=== PATIENT | male | born 1975 | race Caucasian/White ===

== ENCOUNTER → 2016-07-05 | Day surgery (SDC) | payer BC ==
[~2016-07-05] VITALS: Ht 193 cm; Wt 132.5 kg
[~2016-07-05] MED LIST: ADVIL200 MG PO; LEVAQUIN500 MG PO; NORCO 5-325 TA1 EACH PO; TYLENOL EXTRA500 MG PO
--- NOTE | ~2016-07-05 | OR ---
PATIENT'S NAME: LUZ MARIA STEELE [facility] AGE: 40 Y [address] ROOM: [place] [address] [place] [facility] [place] [facility] [place] DATE: 07/05/2016 OR/Procedure Report DISCHARGE DATE: FAMILY PHYSICIAN: Enrique Delvalle MD ATTENDING PHYSICIAN: Eric Do SURGEON: Eric Do MD PROSTHETIC AIDE: DATE OF PROCEDURE: 07/05/2016 PREOPERATIVE DIAGNOSIS: Perineal abscess (Cowper gland per Radiology). POSTOPERATIVE DIAGNOSIS: Perineal abscess (Cowper gland per Radiology). PROCEDURE: Incision and drainage with intraoperative cultures. ANESTHESIA: General. INDICATION: This is an otherwise healthy 40-year-old gentleman, who had developed severe scrotal and perineal pain. He had some bleeding from a pustular lesion on the surface. Basically, that was the infection trying to drain spontaneously. He is extremely miserable. Dr. Delvalle had seen him. He sent him over urgently. We found an elevated white count and an elevated CRP. To further evaluate the extent, we had an ultrasound obtained. I reviewed that with Dr. Brown. 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 It does not appear to track anywhere. There are no other air-fluid levels. He does not have a lot of cellulitis. I did not believe this is a necrotizing fasciitis. He presents at this time for incision and drainage. DESCRIPTION OF PROCEDURE: Having obtained his informed consent, the patient was taken to the operating room. Prepped and draped in a lithotomy position. The skin was incised. We have a copious foul-smelling drainage. We obtained cultures. He was then given IV Levaquin. I probed it and opened it up. There were no loculations. It appears to be completely drained. Importantly, he has had no voiding symptoms. There does not appear to be any urethral connection. He denies any bowel complaints. I did a digital rectal exam after we were done, and that was unremarkable. It does not come anywhere near the cyst. There was no other fluctuance. Antibiotic irrigation was undertaken. We washed the cyst cavity out well. We then tacked it with iodoform gauze. The patient tolerated the procedure well. Blood loss was minimal. The above- PATIENT'S NAME: LUZ MARIA STEELE [facility] AGE: 40 Y [address] ROOM: [place] [address] LOCATION: [facility] [place] [place] DATE: 07/05/2016 OR/Procedure Report DISCHARGE DATE: FAMILY PHYSICIAN: Enrique Delvalle MD ATTENDING PHYSICIAN: Eric Do noted culture was sent. The patient returned to the outpatient recovery area awake and in stable condition. ERIC DO MD [facility]/modl /[id number] CC: Enrique Delvalle MD d: 07/05/164 t: 07/13/16 1450, OPERATIVE SUMMARY
--- NOTE | ~2016-07-05 | HP ---
PATIENT'S NAME: CARRILLO STEELE [facility] AGE: 40 Y [address] ROOM: [place] [address] [place]: [facility] [place] DATE: 07/05/2016 History & Physical DISCHARGE DATE: FAMILY PHYSICIAN: Enrique Delvalle MD ATTENDING PHYSICIAN: Eric Young DATE OF SERVICE: CHIEF COMPLAINT: Scrotal/perineal abscess. HISTORY: This is a 40-year-old gentleman who experienced the onset of severe scrotal pain last night. He saw Dr. Delvalle this morning. He is having some bleeding associated with that. Dr. Delvalle sent him over gently. We have evaluated. He appears to have an abscess at the base of his scrotum and into his perineum. He does not have any risk factors other than his obesity, but it brings to mind a possible necrotizing fasciitis. His CRP and white count are both elevated from Dr. Delvalle's office. Carrillo tells me that he had something like this last fall. However, it resolved spontaneously. He did not see anybody for it. He is otherwise healthy. He has no history of diabetes. 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 MEDICATIONS: Vitamins. ALLERGIES: NONE. REVIEW OF SYSTEMS: Negative except as related to his severe pain and discomfort. PHYSICAL EXAMINATION: GENERAL: This is a pleasant gentleman who is in significant distress. He has a hard time getting comfortable. He says the only way is comfortable of his lying down his legs apart. VITAL SIGNS: As recorded. HEART: Currently regular. LUNGS: Clear. ABDOMEN: Remarkable for obesity. : Reveals a swelling and induration at the base of his scrotum. He has a draining area. PATIENT'S NAME: CARRILLO STEELE [facility] AGE: 40 Y [address] ROOM: [place], [place] [address] LOCATION: [facility] [place] ADMIT DATE: 07/05/2016 History & Physical DISCHARGE DATE: FAMILY PHYSICIAN: Enrique Delvalle MD ATTENDING PHYSICIAN: Eric Young RECTAL: Deferred. He tells me he has had no GI symptoms associated with this. EXTREMITIES: No clubbing, cyanosis, or edema. IMPRESSION: Scrotal/perineal abscess. PLAN: I am going to get an ultrasound to get a better idea of the extensiveness of this. However, I recommend that we go ahead with an incision and drainage with some anesthesia. Carrillo understands and agrees. MD TOMAS RAO/modl /[id number] D: T: 448 HISTORY & PHYSICAL
== END | disposition disaster alternative care site (69) ==
LOC: GRAD 12:28 → GSDC 12:29 → GRAD 13:00
PROC: 0T9D0ZZ Drainage of Urethra, Open Approach (ICD-10-PCS; principal; 2016-07-05)
DX: N34.0 Urethral abscess (principal); E66.9 Obesity, unspecified; Z68.35 Body mass index [BMI] 35.0-35.9, adult
CPT/HCPCS: J0690; J1956; J7030